=== PATIENT | female | born 1990 | race Caucasian/White ===

== ENCOUNTER 2018-05-06 21:01 | Emergency (ER) | payer SELFPAY, MEDICAID ==
[2018-05-06] MEDS: IBUPROFEN 600 MG TAB PO (22:49)
== END 2018-05-07 00:46 | disposition home or self-care (01) ==
LOC: FTE 05-07 00:46
DX: S40.812A Abrasion of left upper arm, initial encounter (principal); V49.40XA Driver injured in collision with unspecified motor vehicles in traffic accident, initial encounter
CPT/HCPCS: 71100; 73090; 99284-25